=== PATIENT | female | born 1995 | race African-American/Black ===

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

== ENCOUNTER 2017-06-30 01:15 | Emergency (ER) | payer SELFPAY ==
[~2017-06-30] VITALS: Ht 185.4 cm; Wt 136.0 kg
[2017-06-30 01:19] VITALS: BP 133/70; PULSE 91; RESP 14; TEMP 99.1; O2SAT 97
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
--- NOTE | 2017-06-30 02:05 | RADRPT ---
EXAM DATE/TIME: 06/30/2017 01:58 [facility] COMPARISON: No previous studies available for comparison. INDICATIONS : Shortness of breath. MEDICAL HISTORY : None. SURGICAL HISTORY : None. ENCOUNTER: Initial ACUITY: 1 day PAIN SCORE: 0/10 LOCATION: Bilateral chest FINDINGS: A single view of the chest demonstrates the lungs to be symmetrically aerated without evidence of mas s, infiltrate or effusion. The cardiomediastinal contours are unremarkable given portable technique. Osseous structures are intact. CONCLUSION: 1. No acute cardiopulmonary disease. Armand Geller MD on June 30, 2017 at 2:04 Board Certified Radiologist. This report was verified electronically.
[2017-06-30 02:10] LABS: AUTOMATED NEUTROPHIL # 3.4 TH/MM3 (1.8-7.7); BASOPHIL % 0.8 % (0.0-2.0); EOSINOPHIL % 0.8 % (0.0-4.0); HEMATOCRIT 31.8 % (35.0-46.0); HEMO FLAGS DIFF FINAL; LYMPH % 28.2 % (9.0-44.0); LYMPHOCYTE # 1.7 TH/MM3 (1.0-4.8); MEAN CELL VOLUME 75.5 FL (80.0-100.0); MEAN CORPUSCULAR HEMOGLOBIN 23.3 PG (27.0-34.0); MEAN CORPUSCULAR HGB CONC 30.8 % (32.0-36.0); MONO % 12.6 % (0.0-8.0); NEUT % 57.6 % (16.0-70.0); PLATELET COUNT 311 TH/MM3 (150-450); RED BLOOD COUNT 4.21 MIL/MM3 (4.00-5.30); RED CELL DISTRIBUTION WIDTH 16.6 % (11.6-17.2)
[2017-06-30 02:29] LABS: ANION GAP 8 MEQ/L (5-15); AST (GOT) 14 U/L (16-38); BICARBONATE 26.2 MEQ/L (21.0-32.0); BLOOD UREA NITROGEN 11 MG/DL (7-18); CHLORIDE 106 MEQ/L (98-107); GLOMERULAR FILTRATION RATE 91 ML/MIN (>89); POTASSIUM 3.7 MEQ/L (3.5-5.1); SODIUM (NA) 140 MEQ/L (136-145)
[2017-06-30 02:41] LABS: ALKALINE PHOSPHATASE 68 U/L (45-117); ALT (GPT) 22 U/L (9-42); TOTAL BILIRUBIN ADULT 0.2 MG/DL (0.2-1.0)
[2017-06-30] MEDS ORDERED: ONDANSETRON HCL 4 MG/2 ML VIAL IV ONE (02:45)
[2017-06-30] MEDS ORDERED: SODIUM CHLOR 0.9% 1000 ML INJ 1,000 ML IV ONE (02:45)
[2017-06-30] MEDS ORDERED: IOHEXOL 350 MG/ML 10 ML VIAL (for RAD DIAG) IVCONTRAST ONE (03:06)
--- NOTE | 2017-06-30 03:22 | RADRPT ---
EXAM DATE/TIME: 06/30/2017 03:07 [facility] COMPARISON: No previous studies available for comparison. INDICATIONS : Smoked marijuana and could'nt catch breath. IV CONTRAST: 80 cc Omnipaque 350 (iohexol) IV RADIATION DOSE: 26.94 CTDIvol (mGy) MEDICAL HISTORY : None SURGICAL HISTORY : None. ENCOUNTER: Initial ACUITY: 1 day PAIN SCALE: 0/10 LOCATION: cranial TECHNIQUE: Volumetric scanning of the chest was performed using a pulmonary embolism protocol MIP images were re constructed. Using automated exposure control and adjustment of the mA and/or kV according to patien t size, radiation dose was kept as low as reasonably achievable to obtain optimal diagnostic quality images. DICOM format image data is available electronically for review and comparison. Follow-up recommendations for detected pulmonary nodules are based at a minimum on nodule size and pa tient risk factors according to Fleischner Society Guidelines. FINDINGS: PULMONARY ARTERIES: The pulmonary arteries are sufficiently opacified to the very proximal segmental level. No evidence f or intraluminal filling defect. LUNGS: There is no consolidation or pneumothorax . No concerning pulmonary nodule is visualized. PLEURAE: There is no pleural thickening or pleural effusion. MEDIASTINUM: There is good visualization of the great vessels of the middle mediastinum. No evidence of mediastin al or hilar adenopathy/mass. MUSCULOSKELETAL: Within normal limits for patient age. MISCELLANEOUS: The visualized upper abdominal organs demonstrate no acute abnormality. CONCLUSION: 1. Limited examination due to suboptimal contrast bolus timing. No evidence for pulmonary artery embo lism to the very proximal segmental level. More distal pulmonary artery branches are suboptimally vis ualized for definitive evaluation. 2. Unremarkable CT examination of the chest. Armand Geller MD on June 30, 2017 at 3:17 Board Certified Radiologist. This report was verified electronically.
[2017-06-30 03:48] VITALS: O2SAT 100
[2017-06-30] MEDS ORDERED: ZOFR4TAB3 SL (03:59)
[2017-06-30] MEDS ORDERED: FERR325T8 PO (03:59)
[2017-06-30] MEDS ORDERED: ALBUAER3 INH (03:59)
[2017-06-30 04:30] LABS: BLOOD, URINE NEG (NEG); GLUCOSE,URINE NEG (NEG); KETONE, URINE NEG (NEG); NITRITE,URINE NEG (NEG); URINE COLOR LIGHT-YELLOW (YELLW/STRAW)
[2017-06-30 04:44] LABS: COMMENT (UR) CULT NOT INDICATED; CULTURE IF INDICATED CULT NOT INDICATED
== END 2017-06-30 04:45 | disposition home or self-care (01) ==
LOC: NEPE 01:15
DX: R06.02 Shortness of breath (principal); R06.2 Wheezing; F12.10 Cannabis abuse, uncomplicated; D64.9 Anemia, unspecified; R11.2 Nausea with vomiting, unspecified; R07.89 Other chest pain; J45.909 Unspecified asthma, uncomplicated; Z88.6 Allergy status to analgesic agent
CPT/HCPCS: 71010; 71275; 80053; 80307; 81001; 84443; 84703; 85025; 85379; 96374; 99285; J2405; J7030; Q9967